=== PATIENT | male | born 1965 | race Caucasian/White ===

== ENCOUNTER 2019-08-06 18:27 | Emergency (ER) | payer MEDICAID ==
[~2019-08-06] VITALS: Ht 185.4 cm; Wt 65.5 kg
[~2019-08-06 18:27] MED LIST: AMI25T PO; BAC10T PO; CLON-529 PO; FENO135C3 PO; FOLI-43 PO; LISI-600 PO; LORA1TAB PO; MORP30TA60 PO
[2019-08-06 18:35] VITALS: BP 148/82
--- NOTE | 2019-08-06 18:44 | NUR ---
VERBAL ORDER FROM LOREE DAMON FOR VL DVT STUDY R LEG.
== END 2019-08-06 21:45 | disposition home or self-care (01) ==
LOC: ER 18:27
DX: M66.0 Rupture of popliteal cyst (principal); M79.604 Pain in right leg; E78.00 Pure hypercholesterolemia, unspecified; I10 Essential (primary) hypertension; G89.29 Other chronic pain; F41.9 Anxiety disorder, unspecified; F32.9 Major depressive disorder, single episode, unspecified; F12.90 Cannabis use, unspecified, uncomplicated; Z90.49 Acquired absence of other specified parts of digestive tract; Z98.890 Other specified postprocedural states; Z88.5 Allergy status to narcotic agent; Z79.899 Other long term (current) drug therapy
CPT/HCPCS: 93971; 99284

== ENCOUNTER 2024-11-05 08:24 | Outpatient (CLI) | payer MEDICAID ==
[~2024-11-05 08:24] MED LIST changes: -LISI-600 PO; +LISI20TA28 PO
== END 2024-11-05 23:59 | disposition home or self-care (01) ==
LOC: RAD 08:24
PROVIDERS: ATTEND Pediatrics Sports Medicine
DX: M47.816 Spondylosis without myelopathy or radiculopathy, lumbar region (principal); M51.370 Other intervertebral disc degeneration, lumbosacral region with discogenic back pain only; M47.812 Spondylosis without myelopathy or radiculopathy, cervical region; M48.07 Spinal stenosis, lumbosacral region; M50.30 Other cervical disc degeneration, unspecified cervical region; M43.8X6 Other specified deforming dorsopathies, lumbar region; M23.42 Loose body in knee, left knee; M25.562 Pain in left knee; N28.1 Cyst of kidney, acquired; N20.0 Calculus of kidney; B02.9 Zoster without complications; Z68.25 Body mass index [BMI] 25.0-25.9, adult
CPT/HCPCS: 72131